=== PATIENT | male | born 1990 | race Caucasian/White ===

== ENCOUNTER 2018-06-12 13:02 | Emergency (ER) | payer OTHER, BC ==
[~2018-06-12] VITALS: Ht 172.7 cm; Wt 82.0 kg
[2018-06-12 16:44] VITALS: BP 131/79
== END 2018-06-12 16:44 | disposition home or self-care (01) ==
LOC: ER 13:02
DX: J35.8 Other chronic diseases of tonsils and adenoids (principal); F12.10 Cannabis abuse, uncomplicated; H92.02 Otalgia, left ear
CPT/HCPCS: 87070; 87430; 99283; 99284